=== PATIENT | female | born 1960 | race American Indian/Alaskan Native ===

== ENCOUNTER 2017-05-10 19:59 | Emergency (ER) | payer MEDICAID ==
[~2017-05-10] VITALS: Ht 165.1 cm; Wt 39.1 kg
[~2017-05-10 19:59] MED LIST: ACET500T71 PO; ENOX40SY4 SQ; WARF5TAB7 PO
[2017-05-10] MEDS ORDERED: ZIPRASIDONE 20 MG INJ IM ONE ×2 (20:18→20:30)
[2017-05-10] MEDS ORDERED: SODIUM CHLORIDE FLUSH 10ML SYR IVF ONE (20:30)
[2017-05-10] MEDS ORDERED: LORazepam 2 MG/ML, 1ML IVPush ONE (20:30)
[2017-05-10] MEDS ORDERED: SODIUM CHLORIDE 0.9% 1,000ML IVBOLUS ONE (20:30)
[2017-05-10 20:41] LABS: ASPARTATE AMINO TRANSFERASE 47 U/L (15-37); BLOOD UREA NITROGEN 20 mg/dL (7-18)
[2017-05-10 20:48] LABS: IS PT STATUS REG ER OR PRE ER? YES
[2017-05-10 21:09] LABS: DIFF TOTAL CELLS COUNTED 100 CELL DIFF
[2017-05-10 21:14] LABS: VERIFY COUNTS? YES
[2017-05-10 22:41] VITALS: BP 151/82
== END 2017-05-10 22:44 | disposition home or self-care (01) ==
LOC: ED 21:45
DX: F10.120 Alcohol abuse with intoxication, uncomplicated (principal)
CPT/HCPCS: 36415; 71010; 80053; 80307; 83690; 83880; 84484; 85025; 85610; 93005; 96360; 96361; 96372; 99285; J3486; J7030

== ENCOUNTER 2017-05-11 23:07 | Emergency (ER) | payer MEDICAID ==
[~2017-05-11] VITALS: Ht 149.9 cm; Wt 39.9 kg
[2017-05-11] MEDS ORDERED: NITROGLYCERIN OINT 2%, 1GM TP ONE (23:40)
[2017-05-11] MEDS ORDERED: LORazepam 2 MG/ML, 1ML ONE (23:40)
[2017-05-11] MEDS ORDERED: LABETALOL 5MG/ML, 20ML ONE (23:40)
[2017-05-11] MEDS ORDERED: THIAMINE 100MG TABLET ONE (23:59)
[2017-05-12] MEDS ORDERED: NITROGLYCERIN OINT 2%, 1GM TP ONE
[2017-05-12] MEDS ORDERED: ONDANSETRON 2MG/ML, 2ML IVPush ONE
[2017-05-12] MEDS ORDERED: ONDANSETRON 2MG/ML, 2ML ONE
[2017-05-12] MEDS ORDERED: SODIUM CHLORIDE 0.9% 1,000ML IVBOLUS ONE
[2017-05-12] MEDS ORDERED: LABETALOL 5MG/ML, 20ML IVPush ONE
[2017-05-12] MEDS ORDERED: THIAMINE 100MG TABLET PO ONE
[2017-05-12] MEDS ORDERED: LORazepam 2 MG/ML, 1ML IVPush PRN
[2017-05-12] MEDS ORDERED: SODIUM CHLORIDE FLUSH 10ML SYR IVF ONE
[2017-05-12 00:12] LABS: BLOOD UREA NITROGEN 19 mg/dL (7-18)
[2017-05-12 00:17] LABS: IS PT STATUS REG ER OR PRE ER? NO
[2017-05-12 00:34] LABS: PATH.CAST-FLAG NOT PRESENT; SPERM-FLAG NOT PRESENT; SRC-FLAG NOT PRESENT; XTAL-FLAG NOT PRESENT; YLC-FLAG NOT PRESENT
[2017-05-12 02:09] VITALS: BP 112/64
== END 2017-05-12 02:12 ==
LOC: ED 23:59
DX: F10.239 Alcohol dependence with withdrawal, unspecified (principal); I10 Essential (primary) hypertension; Z95.2 Presence of prosthetic heart valve
CPT/HCPCS: 36415; 70450; 80048; 80307; 81001; 82040; 84484; 85025; 93005; 96361; 96374; 96375; 99285; J2060; J2405; J7030

== ENCOUNTER 2017-07-13 19:40 | Inpatient (IN) | payer MEDICAID, OTHER ==
[~2017-07-13] VITALS: Ht 149.9 cm; Wt 44.2 kg
[2017-07-13] MEDS ORDERED: ASPIRIN 81 MG TABLET CHEW PO ONE (20:00)
[2017-07-13] MEDS ORDERED: ONDANSETRON 2MG/ML, 2ML IVPush ONE (20:00)
[2017-07-13] MEDS ORDERED: SODIUM CHLORIDE FLUSH 10ML SYR IVF ONE (20:00)
[2017-07-13] MEDS ORDERED: ONDANSETRON 2MG/ML, 2ML ONE (20:14)
[2017-07-13] MEDS ORDERED: MORPHINE SULFATE 4 MG/ML, 1ML ONE ×2 (20:14→20:51)
[2017-07-13] MEDS ORDERED: ASPIRIN 81 MG TABLET CHEW ONE (20:15)
[2017-07-13 20:16] LABS: HEMATOCRIT 36.7 % (34.6-47.8); WHITE BLOOD COUNT 6.1 x10^3/uL (3.4-10)
[2017-07-13] MEDS: MORPHINE SULFATE 4 MG/ML, 1ML IVPush PRN ×2 (20:24→20:58)
[2017-07-13 20:29] LABS: ASPARTATE AMINO TRANSFERASE 18 U/L (15-37); BLOOD UREA NITROGEN 44 mg/dL (7-18)
[2017-07-13 20:34] LABS: IS PT STATUS REG ER OR PRE ER? YES
[2017-07-13] MEDS ORDERED: SODIUM CHLORIDE 0.9% 1,000 ML IV ONE (21:15)
[2017-07-13] MEDS ORDERED: SODIUM CHLORIDE FLUSH 10ML SYR IVF PRN (21:30)
[2017-07-13] MEDS ORDERED: HYDROmorphone 1 MG/ML, 1ML ONE (21:44)
[2017-07-13] MEDS ORDERED: hydrALAzine 20 MG/ML, 1ML IVPush PRN (22:00)
[2017-07-13] MEDS ORDERED: PROMETHAZINE 25 MG/ML, 1ML IM PRN (22:00)
[2017-07-13] MEDS ORDERED: KETOROLAC 30 MG/1 ML IVPush PRN (22:00)
[2017-07-13] MEDS ORDERED: BISACODYL 10 MG SUPP PR PRN (22:00)
[2017-07-13] MEDS ORDERED: DIAZEPAM 5 MG/ML, 10ML VIAL IV PRN (22:00)
[2017-07-13] MEDS ORDERED: ONDANSETRON 2MG/ML, 2ML IVPush PRN (22:00)
[2017-07-13 22:03] LABS: DAU SCREEN DISCLAIMER
[2017-07-13 22:25] LABS: PATH.CAST-FLAG NOT PRESENT; SPERM-FLAG NOT PRESENT; SRC-FLAG NOT PRESENT; XTAL-FLAG NOT PRESENT; YLC-FLAG NOT PRESENT
[2017-07-13 22:32] VITALS: BP 154/97
[2017-07-13] MEDS ORDERED: OMNIPAQUE 350 MG/ML, 100ML BOTTLE ONE (23:27)
[2017-07-13] MEDS: METOPROLOL 1 MG/ML, 5ML IVPush SCH (23:33)
[2017-07-13] MEDS: SODIUM CHLORIDE 0.9% 1,000 ML IV SCH (23:33)
[2017-07-13] MEDS: HEPARIN 5,000 UNITS/ML, 1ML SQ SCH (23:34)
[2017-07-13] MEDS: METHOCARBAMOL 750 MG in DEXTROSE 5% 100 ML IV SCH (23:49)
[2017-07-14] MEDS ORDERED: HYDROmorphone 1 MG/ML, 1ML IV ONE
[2017-07-14 08:16] LABS: BLOOD UREA NITROGEN 36 mg/dL (7-18)
[2017-07-14 08:19] LABS: BLOOD UREA NITROGEN 32 mg/dL (7-18)
[2017-07-14 08:26] LABS: HEMATOCRIT 30.3 % (34.6-47.8); HEMOGLOBIN 9.9 g/dL (11.7-16.4); WHITE BLOOD COUNT 4.1 x10^3/uL (3.4-10)
[2017-07-14] MEDS: METHOCARBAMOL 750 MG in DEXTROSE 5% 100 ML IV SCH ×4 (09:02→20:56)
[2017-07-14] MEDS: METOPROLOL 1 MG/ML, 5ML IVPush SCH ×3 (09:03→20:56)
[2017-07-14] MEDS: SODIUM CHLORIDE 0.9% 1,000 ML IV SCH (09:04)
[2017-07-14] MEDS: HEPARIN 5,000 UNITS/ML, 1ML SQ SCH (09:04)
[2017-07-14 09:39] LABS: IS PT STATUS REG ER OR PRE ER? NO
[2017-07-14 10:03] LABS: IS PT STATUS REG ER OR PRE ER? NO
[2017-07-14 12:50] VITALS: BP 101/63
[2017-07-14] MEDS ORDERED: HEPARIN 5,000 UNITS/ML, 1ML IV PRN (13:30)
[2017-07-14] MEDS ORDERED: HEPARIN 25,000 UNITS/500ML PMX 500 ML IV PRN (13:30)
[2017-07-14] MEDS ORDERED: HEPARIN 5,000 UNITS/ML, 1ML IV ONE (13:30)
[2017-07-14] MEDS: morphine SULFATE 10 MG/ML, 1ML IVPush PRN ×2 (15:41→20:56)
[2017-07-14] MEDS: ASPIRIN 325 MG TABLET PO SCH (15:44)
[2017-07-14] MEDS: PANTOPRAZOLE 40 MG IV IVPush SCH (15:44)
[2017-07-14 16:58] VITALS: BP 132/81
[2017-07-14] MEDS: NITROGLYCERIN 0.4 MG BOTTLE (25 TABS) SL PRN ×3 (17:06→22:23)
[2017-07-14 17:27] VITALS: BP 117/75
[2017-07-14 17:54] VITALS: BP 102/61
[2017-07-14] MEDS: ISOSORBIDE MONONITRATE ER 30 MG TABLET PO SCH (20:18)
[2017-07-14 20:40] VITALS: BP 98/61
[2017-07-14] MEDS ORDERED: SODIUM CHLORIDE 0.9%, 250ML IVBOLUS ONE (22:00)
[2017-07-15] VITALS (8 sets, daily range): BP systolic 104–125; BP diastolic 61–77
[2017-07-15] MEDS: PANTOPRAZOLE 40 MG IV IVPush SCH ×2 (03:27→17:23)
[2017-07-15 03:51] LABS: ASPARTATE AMINO TRANSFERASE 24 U/L (15-37); BLOOD UREA NITROGEN 19 mg/dL (7-18)
[2017-07-15 03:56] LABS: IS PT STATUS REG ER OR PRE ER? NO
[2017-07-15] MEDS: NITROGLYCERIN 0.4 MG BOTTLE (25 TABS) SL PRN ×4 (04:24→11:46)
[2017-07-15 04:25] LABS: HEMATOCRIT 29.1 % (34.6-47.8); HEMOGLOBIN 9.6 g/dL (11.7-16.4); WHITE BLOOD COUNT 4.6 x10^3/uL (3.4-10)
[2017-07-15] MEDS: ASPIRIN 325 MG TABLET PO SCH (05:00)
[2017-07-15] MEDS: METOPROLOL 1 MG/ML, 5ML IVPush SCH ×3 (05:00→22:00)
[2017-07-15] MEDS: METHOCARBAMOL 750 MG in DEXTROSE 5% 100 ML IV SCH ×4 (05:00→22:57)
[2017-07-15] MEDS: ISOSORBIDE MONONITRATE ER 30 MG TABLET PO SCH (08:57)
[2017-07-15] MEDS: morphine SULFATE 10 MG/ML, 1ML IVPush PRN ×3 (08:57→20:07)
[2017-07-15] MEDS: SODIUM CHLORIDE 0.9% 1,000 ML IV SCH ×2 (08:57→21:01)
[2017-07-15] MEDS ORDERED: SODIUM CHLORIDE 0.9% 1,000 ML IV ONE (10:42)
[2017-07-15] MEDS ORDERED: VERAPAMIL 2.5 MG/ML, 2ML ONE (14:44)
[2017-07-15] MEDS ORDERED: FENTANYL PF 100 MCG/2ML ONE (14:44)
[2017-07-15] MEDS ORDERED: BIVALIRUDIN 250 MG ONE (14:44)
[2017-07-15] MEDS ORDERED: TICAGRELOR 90 MG TABLET ONE (14:44)
[2017-07-15] MEDS ORDERED: MIDAZOLAM 1 MG/ML, 5ML ONE (14:44)
[2017-07-15] MEDS ORDERED: LIDOCAINE 2%, 20ML ONE (14:45)
[2017-07-15] MEDS ORDERED: HEPARIN 1,000 UNITS/ML, 10ML ONE (14:45)
[2017-07-15] MEDS ORDERED: HEPARIN 5,000 UNITS/ML, 1ML IV ONE (18:30)
[2017-07-15] MEDS ORDERED: HEPARIN 25,000 UNITS/500ML PMX 500 ML IV PRN (18:30)
[2017-07-15] MEDS ORDERED: HEPARIN 5,000 UNITS/ML, 1ML IV PRN (18:30)
[2017-07-15] MEDS: LORazepam 2 MG/ML, 1ML IVPush PRN (21:01)
[2017-07-16 01:22] VITALS: BP 148/82
[2017-07-16] MEDS: LORazepam 2 MG/ML, 1ML IVPush PRN ×4 (02:43→19:59)
[2017-07-16 03:12] VITALS: BP 155/81
[2017-07-16] MEDS: PANTOPRAZOLE 40 MG IV IVPush SCH (05:43)
[2017-07-16] MEDS: SODIUM CHLORIDE 0.9% 1,000 ML IV SCH ×2 (05:44→14:56)
[2017-07-16] MEDS: METHOCARBAMOL 750 MG in DEXTROSE 5% 100 ML IV SCH (05:44)
[2017-07-16] MEDS: METOPROLOL 1 MG/ML, 5ML IVPush SCH ×2 (05:45→14:55)
[2017-07-16 07:44] LABS: HEMATOCRIT 28.6 % (34.6-47.8); HEMOGLOBIN 9.5 g/dL (11.7-16.4); WHITE BLOOD COUNT 6.1 x10^3/uL (3.4-10)
[2017-07-16 07:47] LABS: BLOOD UREA NITROGEN 10 mg/dL (7-18)
[2017-07-16] MEDS: ASPIRIN 325 MG TABLET PO SCH (08:00)
[2017-07-16 08:04] VITALS: BP 118/71
[2017-07-16] MEDS: ISOSORBIDE MONONITRATE ER 30 MG TABLET PO SCH (09:11)
[2017-07-16] MEDS ORDERED: METHOCARBAMOL 500 MG TABLET PO PRN (11:00)
[2017-07-16 12:37] VITALS: BP 148/82
[2017-07-16 16:52] LABS: BLOOD UREA NITROGEN 9 mg/dL (7-18)
[2017-07-16] MEDS: PANTOPROZOLE 40MG TABLET PO SCH (17:48)
[2017-07-16 18:55] VITALS: BP 135/84
[2017-07-17 01:45] VITALS: BP 130/71
[2017-07-17] MEDS: SODIUM CHLORIDE 0.9% 1,000 ML IV SCH ×3 (02:23→22:08)
[2017-07-17] MEDS: PANTOPROZOLE 40MG TABLET PO SCH ×2 (05:12→18:47)
[2017-07-17] MEDS: METOPROLOL SUCCINATE 25 MG TAB.ER.24H PO SCH (05:13)
[2017-07-17 05:16] VITALS: BP 137/86
[2017-07-17 05:36] LABS: HEMATOCRIT 29.6 % (34.6-47.8); HEMOGLOBIN 9.9 g/dL (11.7-16.4); WHITE BLOOD COUNT 4.2 x10^3/uL (3.4-10)
[2017-07-17 07:38] VITALS: BP 125/70
[2017-07-17] MEDS: ISOSORBIDE MONONITRATE ER 30 MG TABLET PO SCH (09:57)
[2017-07-17] MEDS: ASPIRIN 325 MG TABLET PO SCH (09:57)
[2017-07-17] MEDS: HYDROcodone/APAP 5/325 TABLET PO PRN ×2 (10:04→14:57)
[2017-07-17 12:40] VITALS: BP 129/72
[2017-07-17] MEDS ORDERED: WARFARIN 7.5 MG TABLET PO-COUM ONE (18:00)
[2017-07-17 18:47] VITALS: BP 153/66
[2017-07-17] MEDS: LORazepam 2 MG/ML, 1ML IVPush PRN (20:05)
[2017-07-18 02:10] VITALS: BP 129/72
[2017-07-18 05:22] VITALS: BP 146/79
[2017-07-18] MEDS: METOPROLOL SUCCINATE 25 MG TAB.ER.24H PO SCH (05:24)
[2017-07-18] MEDS: SODIUM CHLORIDE 0.9% 1,000 ML IV SCH ×2 (05:24→12:48)
[2017-07-18] MEDS: ASPIRIN 325 MG TABLET PO SCH (05:24)
[2017-07-18] MEDS: PANTOPROZOLE 40MG TABLET PO SCH ×2 (05:24→17:00)
[2017-07-18 05:31] LABS: HEMOGLOBIN 9.3 g/dL (11.7-16.4)
[2017-07-18 05:40] LABS: BLOOD UREA NITROGEN 7 mg/dL (7-18)
[2017-07-18 07:03] VITALS: BP 151/83
[2017-07-18] MEDS: HYDROcodone/APAP 5/325 TABLET PO PRN ×3 (08:14→17:00)
[2017-07-18] MEDS: ISOSORBIDE MONONITRATE ER 30 MG TABLET PO SCH (08:14)
[2017-07-18] MEDS ORDERED: HEPARIN 25,000 UNITS/500ML PMX 500 ML ONE (11:16)
[2017-07-18] MEDS ORDERED: HEPARIN 5,000 UNITS/ML, 1ML IV ONE (11:30)
[2017-07-18] MEDS ORDERED: HEPARIN 25,000 UNITS/500ML PMX 500 ML IV PRN (12:00)
[2017-07-18 13:16] VITALS: BP 151/77
[2017-07-18 19:10] VITALS: BP 154/77
[2017-07-18] MEDS ORDERED: WARFARIN 7.5 MG TABLET PO-COUM ONE (20:00)
[2017-07-18] MEDS: LORazepam 2 MG/ML, 1ML IVPush PRN (21:30)
[2017-07-18] MEDS ORDERED: SODIUM CHLORIDE 0.9% 1,000 ML IV SCH (21:33)
[2017-07-19 01:10] VITALS: BP 134/75
[2017-07-19] MEDS: PANTOPROZOLE 40MG TABLET PO SCH ×2 (05:28→16:56)
[2017-07-19] MEDS: METOPROLOL SUCCINATE 25 MG TAB.ER.24H PO SCH (05:29)
[2017-07-19] MEDS: ASPIRIN 325 MG TABLET PO SCH (05:29)
[2017-07-19 08:12] VITALS: BP 163/77
[2017-07-19] MEDS: ISOSORBIDE MONONITRATE ER 30 MG TABLET PO SCH (10:10)
[2017-07-19] MEDS: WARFARIN MODERAT DOSE PROTOCOL XX SCH (12:00)
[2017-07-19] MEDS: HYDROcodone/APAP 5/325 TABLET PO PRN ×3 (12:11→21:20)
[2017-07-19] MEDS ORDERED: GUAIFENESIN/DM 200-20MG, 10ML UDC PO PRN (12:30)
[2017-07-19 14:44] VITALS: BP 150/83
[2017-07-19] MEDS ORDERED: WARFARIN 2.5 MG TABLET PO-COUM SCH (18:00)
[2017-07-19] MEDS ORDERED: WARFARIN 7.5 MG TABLET PO-COUM ONE (18:00)
[2017-07-19 19:25] VITALS: BP 149/75
[2017-07-19] MEDS: LORazepam 2 MG/ML, 1ML IVPush PRN (21:20)
[2017-07-20 01:26] VITALS: BP 134/71
[2017-07-20] MEDS: PANTOPROZOLE 40MG TABLET PO SCH (05:29)
[2017-07-20] MEDS: METOPROLOL SUCCINATE 25 MG TAB.ER.24H PO SCH (05:29)
[2017-07-20] MEDS ORDERED: ASPIRIN 81 MG TABLET EC PO SCH (06:00)
[2017-07-20] MEDS ORDERED: HOLD COUMADIN MC PRN (08:00)
[2017-07-20 08:13] VITALS: BP 169/92
[2017-07-20] MEDS: ISOSORBIDE MONONITRATE ER 30 MG TABLET PO SCH (08:26)
[2017-07-20] MEDS: HYDROcodone/APAP 5/325 TABLET PO PRN ×2 (08:31→11:04)
[2017-07-20 11:00] VITALS: BP 134/77
[2017-07-20] MEDS: WARFARIN MODERAT DOSE PROTOCOL XX SCH (12:00)
[2017-07-20] MEDS ORDERED: PANT40TA5 PO (13:11)
[2017-07-20] MEDS ORDERED: METO25TA91 PO (13:11)
[2017-07-20] MEDS ORDERED: WARF4TAB PO (13:11)
[2017-07-20] MEDS ORDERED: ISOS30TA8 PO (13:11)
[2017-07-20] MEDS ORDERED: ASPI-621 PO (13:11)
[2017-07-20 13:59] VITALS: BP 141/74
== END 2017-07-20 15:34 | disposition home or self-care (01) | DRG 280 ==
LOC: ED 21:10 → SUATTDRO 21:11 → EDIP 21:15 → ED 21:34 → 5SO 22:26 → DCLOUNGE 07-20 15:20
PROC: 4A023N7 Measurement of Cardiac Sampling and Pressure, Left Heart, Percutaneous Approach (ICD-10-PCS; principal; 2017-07-15)
PROC: B2111ZZ Fluoroscopy of Multiple Coronary Arteries using Low Osmolar Contrast (ICD-10-PCS; 2017-07-15)
PROC: B2151ZZ Fluoroscopy of Left Heart using Low Osmolar Contrast (ICD-10-PCS; 2017-07-15)
DX: I21.4 Non-ST elevation (NSTEMI) myocardial infarction (principal); N17.0 Acute kidney failure with tubular necrosis; K85.20 Alcohol induced acute pancreatitis without necrosis or infection; D68.69 Other thrombophilia; E87.5 Hyperkalemia; K86.0 Alcohol-induced chronic pancreatitis; D64.9 Anemia, unspecified; I11.9 Hypertensive heart disease without heart failure; E78.1 Pure hyperglyceridemia; F17.210 Nicotine dependence, cigarettes, uncomplicated; I16.0 Hypertensive urgency; R82.71 Bacteriuria; M54.2 Cervicalgia; I25.10 Atherosclerotic heart disease of native coronary artery without angina pectoris; Z82.49 Family history of ischemic heart disease and other diseases of the circulatory system; Z95.3 Presence of xenogenic heart valve
CPT/HCPCS: 36415; 71010; 71275; 76700; 80048; 80053; 80061; 80307; 81001; 83690; 83735; 84100; 84484; 85025; 85379; 85520; 85610; 87086; 87147; 93005; 93306; 93458; 96361; 96374; 96375; 96376; 99156; C1894; J0583; J1170; J1644; J1885; J2250; J2405; J3010; J3490; Q9967; C9113; G0479; J0360; J2060; J2270; J2800; J7030; J7050

== ENCOUNTER 2018-12-31 09:45 | Inpatient (IN) | payer MEDICAID, OTHER ==
[~2018-12-31] VITALS: Ht 149.9 cm; Wt 39.5 kg
[~2018-12-31 09:45] MED LIST changes: +ASPI81TA45 PO; +ISOS30TA8 PO; +METO25TA91 PO; +PANT40TA5 PO; +WARF-36 PO; +WARF4TAB PO; -WARF5TAB7 PO
--- NOTE | 2018-12-31 10:01 | NUR ---
Pt to room from [facility]. Pt c/o sharp L sided CP 03/24 starting this morning. Pt speaking in full sentences, resp even and unlabored. Pt placed in gown, positioned for comfort in bed with warm blanket. Continuous heart, oxygen and BP monitors applied, all safety measures observed.
[2018-12-31] MEDS ORDERED: ASPIRIN 81 MG TABLET CHEW ONE (10:08)
[2018-12-31] MEDS ORDERED: NITROGLYCERIN SINGLE TAB 0.4 MG SL PRN (10:30)
[2018-12-31] MEDS ORDERED: ASPIRIN 81 MG TABLET CHEW PO ONE (10:30)
[2018-12-31 10:36] LABS: BASOPHILS # (AUTO) 0.03 x10^3/uL (0-0.1); BASOPHILS % (AUTO) 1 % (0-1); EOSINOPHILS # (AUTO) 0.14 x10^3/uL (0-0.4); EOSINOPHILS % (AUTO) 4 % (1-7); LYMPHOCYTES # (AUTO) 0.89 x10^3/uL (1-3.4); LYMPHOCYTES % (AUTO) 22 % (22-44); MD NO; MEAN CORPUSCULAR HEMOGLOBIN 30.2 pg (27.0-34.8); MEAN CORPUSCULAR HGB CONC 33.2 g/dL (32.4-35.8); MEAN CORPUSCULAR VOLUME 90.9 fL (80-100); MEAN PLATELET VOLUME 8.2 fL (7.4-10.4); MONOCYTES # (AUTO) 0.25 x10^3/uL (0.2-0.8); MONOCYTES % (AUTO) 6 % (2-9); NEUTROPHILS # (AUTO) 2.79 x10^3/uL (1.8-6.8); NEUTROPHILS % (AUTO) 68 % (42-75); PLATELET COUNT 243 x10^3/uL (130-400); RED BLOOD COUNT 4.39 x10^6/uL (3.82-5.3); RED CELL DISTRIBUTION WIDTH 13.7 % (9.6-15.2)
[2018-12-31 10:38] LABS: INTERNATIONAL NORMALIZED RATIO 1.06 (0.93-1.1); PROTHROMBIN TIME 11.2 Seconds (9.6-11.5)
[2018-12-31] MEDS ORDERED: NITROGLYCERIN SINGLE TAB 0.4 MG SL ONE (10:38)
[2018-12-31 10:40] LABS: ALBUMIN 3.8 g/dL (3.4-5.0); ANION GAP 8 mmol/L (5-15); CALCIUM 9.3 mg/dL (8.5-10.1); CHLORIDE 108 mmol/L (98-107); CREATININE 1.27 mg/dL (0.55-1.02)
[2018-12-31 10:44] LABS: TROPONIN I < 0.015 ng/mL (0.000-0.045)
--- NOTE | 2018-12-31 10:55 | NUR ---
Pt states CP 10 after NTG. Pt c/o ONOFRE at this time as well.
[2018-12-31] MEDS ORDERED: ACETAMINOPHEN 325 MG TABLET ONE (10:57)
--- NOTE | 2018-12-31 10:59 | NUR ---
Discussed pt condition with Dr. Riddle. Orders received for Tylenol PO. Pt medicated per order, denies other needs.
[2018-12-31 11:12] LABS: FREE T4 (FREE THYROXINE) 1.08 ng/dL (0.76-1.46)
[2018-12-31] MEDS ORDERED: ACETAMINOPHEN 325 MG TABLET PO ONE (11:30)
--- NOTE | 2018-12-31 11:40 | NUR ---
SURGERY NURSE AT BEDSIDE WITH DECISION TO GO TO HOUSING DEVELOPMENT SPECIALIST. HOUSING DEVELOPMENT SPECIALIST NOT READY AT THIS TIME. HOSPITALIST AT BEDSIDE SPEAKING WITH PT
[2018-12-31] MEDS ORDERED: FENTANYL PF 100 MCG/2ML ONE (11:42)
[2018-12-31] MEDS ORDERED: LIDOCAINE 1%, 20ML ONE (11:42)
[2018-12-31] MEDS ORDERED: MIDAZOLAM 1 MG/ML, 2ML ONE (11:42)
[2018-12-31] MEDS ORDERED: NITROGLYCERIN 5 MG/ML, 10ML ONE (11:42)
[2018-12-31] MEDS ORDERED: BIVALIRUDIN 250 MG ONE (11:42)
--- NOTE | 2018-12-31 11:50 | NUR ---
PT WITH SILVERSUMMIT INS. DENIED BY ELINOR AT [facility] AND DIANNE AT [facility]
--- NOTE | 2018-12-31 11:52 | NUR ---
Transparent pads placed on pt. Pt to can labeler with RNs and tech
[2018-12-31] MEDS ORDERED: NS + 20MEQ KCL 1,000 ML IV SCH (11:59)
[2018-12-31] MEDS ORDERED: NITROGLYCERIN 0.4 MG BOTTLE (25 TABS) SL PRN (12:00)
[2018-12-31] MEDS ORDERED: hydrALAzine 20 MG/ML, 1ML IVPush PRN (12:00)
[2018-12-31] MEDS ORDERED: NITROGLYCERIN 0.4 MG/SPRAY SL PRN (12:00)
[2018-12-31] MEDS ORDERED: morphine SULFATE 10 MG/ML, 1ML IV PRN (12:00)
[2018-12-31] MEDS ORDERED: HEPARIN 5,000 UNITS/ML, 1ML SQ SCH (12:00)
[2018-12-31 12:24] LABS: CHOL/HDL RATIO 2.6; LDL/HDL RATIO 1.5 (0.5-3.0)
[2018-12-31] MEDS ORDERED: SODIUM CHLORIDE 0.9% 1,000 ML IV SCH (12:27)
[2018-12-31] MEDS ORDERED: WARFARIN MECH. VALVE PROTOCOL 2.5 to 3.5 XX PRN (12:30)
[2018-12-31] MEDS ORDERED: HEPARIN 5,000 UNITS/ML, 1ML IV ONE (13:00)
[2018-12-31 13:28] VITALS: BP 143/89
[2018-12-31] MEDS: HEPARIN 25,000 UNITS/500ML PMX 500 ML IV PRN (14:49)
[2018-12-31] MEDS ORDERED: WARFARIN 7.5 MG TABLET PO-COUM ONE (18:00)
[2018-12-31 20:48] VITALS: BP 125/81
[2018-12-31] MEDS: METOPROLOL SUCCINATE 25 MG TAB.ER.24H PO SCH (20:52)
[2018-12-31] MEDS: ATORVASTATIN 40 MG TABLET PO SCH (20:52)
[2018-12-31] MEDS: SODIUM CHLORIDE FLUSH 10ML SYR IVF SCH (20:53)
[2019-01-01 00:50] VITALS: BP 104/69
[2019-01-01 05:06] LABS: INTERNATIONAL NORMALIZED RATIO 1.06 (0.93-1.1); PROTHROMBIN TIME 11.2 Seconds (9.6-11.5)
[2019-01-01 05:11] LABS: ANION GAP 6 mmol/L (5-15); CALCIUM 8.8 mg/dL (8.5-10.1); CHLORIDE 110 mmol/L (98-107); CREATININE 1.11 mg/dL (0.55-1.02)
[2019-01-01 05:15] LABS: BASOPHILS # (AUTO) 0.03 x10^3/uL (0-0.1); BASOPHILS % (AUTO) 1 % (0-1); EOSINOPHILS # (AUTO) 0.15 x10^3/uL (0-0.4); EOSINOPHILS % (AUTO) 3 % (1-7); LYMPHOCYTES # (AUTO) 1.67 x10^3/uL (1-3.4); LYMPHOCYTES % (AUTO) 28 % (22-44); MD NO; MEAN CORPUSCULAR HEMOGLOBIN 29.9 pg (27.0-34.8); MEAN CORPUSCULAR HGB CONC 32.5 g/dL (32.4-35.8); MEAN CORPUSCULAR VOLUME 91.9 fL (80-100); MEAN PLATELET VOLUME 8.6 fL (7.4-10.4); MONOCYTES # (AUTO) 0.55 x10^3/uL (0.2-0.8); MONOCYTES % (AUTO) 9 % (2-9); NEUTROPHILS # (AUTO) 3.53 x10^3/uL (1.8-6.8); NEUTROPHILS % (AUTO) 60 % (42-75); PLATELET COUNT 207 x10^3/uL (130-400); RED BLOOD COUNT 4.08 x10^6/uL (3.82-5.3); RED CELL DISTRIBUTION WIDTH 13.8 % (9.6-15.2)
[2019-01-01] MEDS: HEPARIN 5,000 UNITS/ML, 1ML IV PRN (05:38)
[2019-01-01] MEDS: ASPIRIN 325 MG TABLET EC PO SCH (05:40)
[2019-01-01] MEDS: METOPROLOL SUCCINATE 25 MG TAB.ER.24H PO SCH (05:50)
[2019-01-01 08:00] VITALS: BP 110/74
[2019-01-01] MEDS: SODIUM CHLORIDE FLUSH 10ML SYR IVF SCH ×2 (08:51→20:32)
[2019-01-01 11:10] VITALS: BP 110/69
[2019-01-01 13:10] VITALS: BP 104/64
[2019-01-01] MEDS ORDERED: WARFARIN 7.5 MG TABLET PO-COUM ONE (18:00)
[2019-01-01 19:48] VITALS: BP 117/70
[2019-01-01] MEDS: ATORVASTATIN 40 MG TABLET PO SCH (20:32)
[2019-01-02 02:23] VITALS: BP 119/73
[2019-01-02 05:42] LABS: INTERNATIONAL NORMALIZED RATIO 2.11 (0.93-1.1); PROTHROMBIN TIME 21.7 Seconds (9.6-11.5)
[2019-01-02 05:53] LABS: ANION GAP 5 mmol/L (5-15); CALCIUM 8.4 mg/dL (8.5-10.1); CHLORIDE 109 mmol/L (98-107); CREATININE 1.01 mg/dL (0.55-1.02)
[2019-01-02 05:55] VITALS: BP 113/74
[2019-01-02] MEDS: ASPIRIN 325 MG TABLET EC PO SCH (05:57)
[2019-01-02] MEDS: METOPROLOL SUCCINATE 25 MG TAB.ER.24H PO SCH (05:57)
[2019-01-02 07:21] VITALS: BP 113/75
[2019-01-02] MEDS: SODIUM CHLORIDE FLUSH 10ML SYR IVF SCH ×2 (08:33→21:00)
[2019-01-02] MEDS: HEPARIN 25,000 UNITS/500ML PMX 500 ML IV PRN (08:49)
[2019-01-02] MEDS: HEPARIN 5,000 UNITS/ML, 1ML IV PRN (08:50)
[2019-01-02 12:14] VITALS: BP 118/72
[2019-01-02] MEDS ORDERED: BISACODYL 10 MG SUPP PR PRN (18:00)
[2019-01-02] MEDS ORDERED: POLYETHYLENE GLYCOL 17 GM PACKET NG PRN (18:00)
[2019-01-02] MEDS ORDERED: WARFARIN 2.5 MG TABLET PO-COUM ONE (18:00)
[2019-01-02 21:12] VITALS: BP 111/71
[2019-01-02] MEDS: ATORVASTATIN 40 MG TABLET PO SCH (22:29)
[2019-01-03 02:45] VITALS: BP 126/71
[2019-01-03] MEDS: ASPIRIN 325 MG TABLET EC PO SCH (05:24)
[2019-01-03] MEDS: METOPROLOL SUCCINATE 25 MG TAB.ER.24H PO SCH (05:25)
[2019-01-03 05:56] LABS: BASOPHILS # (AUTO) 0.04 x10^3/uL (0-0.1); BASOPHILS % (AUTO) 1 % (0-1); EOSINOPHILS # (AUTO) 0.23 x10^3/uL (0-0.4); EOSINOPHILS % (AUTO) 4 % (1-7); LYMPHOCYTES # (AUTO) 1.54 x10^3/uL (1-3.4); LYMPHOCYTES % (AUTO) 26 % (22-44); MD NO; MEAN CORPUSCULAR HEMOGLOBIN 30.3 pg (27.0-34.8); MEAN CORPUSCULAR HGB CONC 33.2 g/dL (32.4-35.8); MEAN CORPUSCULAR VOLUME 91.4 fL (80-100); MEAN PLATELET VOLUME 8.6 fL (7.4-10.4); MONOCYTES # (AUTO) 0.47 x10^3/uL (0.2-0.8); MONOCYTES % (AUTO) 8 % (2-9); NEUTROPHILS # (AUTO) 3.64 x10^3/uL (1.8-6.8); NEUTROPHILS % (AUTO) 62 % (42-75); PLATELET COUNT 209 x10^3/uL (130-400); RED BLOOD COUNT 4.21 x10^6/uL (3.82-5.3)
[2019-01-03 06:48] VITALS: BP 150/81
[2019-01-03 06:56] LABS: INTERNATIONAL NORMALIZED RATIO 4.06 (0.93-1.1); PROTHROMBIN TIME 40.8 Seconds (9.6-11.5)
[2019-01-03] MEDS ORDERED: SENNA/DOCUSATE TABLET PO SCH (09:00)
[2019-01-03] MEDS: SODIUM CHLORIDE FLUSH 10ML SYR IVF SCH (10:52)
[2019-01-03] MEDS ORDERED: ASPI-515 PO (11:07)
[2019-01-03] MEDS ORDERED: ATOR40TA78 PO (11:07)
[2019-01-03] MEDS ORDERED: WARF5TAB PO (11:07)
[2019-01-03] MEDS ORDERED: METO25TA91 PO (11:07)
[2019-01-03] MEDS ORDERED: WARFARIN 3 MG TABLET PO-COUM ONE (18:00)
== END 2019-01-03 12:20 | disposition home or self-care (01) | DRG 287 ==
LOC: ED 10:18 → EDIP 11:28 → 5SO 12:47 → 4NOR 01-01 11:05 → DCLOUNGE 01-03 12:15
PROVIDERS: ADMIT Internal Medicine; ATTEND Internal Medicine
PROC: 4A023N7 Measurement of Cardiac Sampling and Pressure, Left Heart, Percutaneous Approach (ICD-10-PCS; principal; 2018-12-31)
PROC: B2111ZZ Fluoroscopy of Multiple Coronary Arteries using Low Osmolar Contrast (ICD-10-PCS; 2018-12-31)
PROC: B2151ZZ Fluoroscopy of Left Heart using Low Osmolar Contrast (ICD-10-PCS; 2018-12-31)
DX: I25.10 Atherosclerotic heart disease of native coronary artery without angina pectoris (principal); D68.69 Other thrombophilia; N17.9 Acute kidney failure, unspecified; F17.210 Nicotine dependence, cigarettes, uncomplicated; F10.20 Alcohol dependence, uncomplicated; Y90.9 Presence of alcohol in blood, level not specified; Z71.6 Tobacco abuse counseling; Z79.01 Long term (current) use of anticoagulants; Z82.49 Family history of ischemic heart disease and other diseases of the circulatory system; Z91.14 Patient's other noncompliance with medication regimen; Z95.2 Presence of prosthetic heart valve
CPT/HCPCS: 36415; 71045; 80048; 80061; 82040; 84439; 84443; 84481; 84484; 85025; 85520; 85610; 85730; 93005; 93306; 93458; 99156; 99291; C1760; C1769; C1894; G0378; J0583; J1644; J2250; J3010; J3490; Q9967

== ENCOUNTER 2019-09-19 15:13 | Emergency (ER) | payer MEDICAID ==
[~2019-09-19] VITALS: Ht 147.3 cm; Wt 35.2 kg
[~2019-09-19 15:13] MED LIST changes: +ACET500T64 PO; -ACET500T71 PO; +ASPI-515 PO; +ATOR40TA78 PO; +WARF5TAB PO
[2019-09-19 15:16] VITALS: BP 172/97
== END 2019-09-19 17:08 | disposition home or self-care (01) ==
LOC: ED 17:05
DX: S39.012A Strain of muscle, fascia and tendon of lower back, initial encounter (principal); I10 Essential (primary) hypertension; Z87.891 Personal history of nicotine dependence; V03.09XA Pedestrian with other conveyance injured in collision with car, pick-up truck or van in nontraffic accident, initial encounter; Y93.89 Activity, other specified; Y92.410 Unspecified street and highway as the place of occurrence of the external cause; Y99.8 Other external cause status
CPT/HCPCS: 72110; 72220; 99283

== ENCOUNTER 2020-01-30 09:24 | Emergency (ER) | payer MEDICAID, OTHER ==
[~2020-01-30] VITALS: Ht 149.9 cm; Wt 45.0 kg
--- NOTE | 2020-01-30 09:33 | NUR ---
HERBER. REPORT RECEIVED FROM EMS. PT HAD SUDDEN ONSET OF SHARP LEFT SIDED CP RADIATING TO LEFT SHOURDER AT 8:30AM AT WORK. HX OF MITRAL VALVE REPLACEMENT. ALL MONITORS IN PLACE. CALL LIGHT WITHIN REACH. 325 ASA/NITRO X 3 TIMES GIVEN BIOTECH PRODUCTION SPECIALIST BY EMS. PT'S AOX4. RESPS EVEN AND UNLABORED. NSR RATE 90'S ON QUALITY ASSURANCE SUPERVISOR TRIM AT THIS TIME.
[2020-01-30] MEDS ORDERED: SODIUM CHLORIDE FLUSH 10ML SYR IVF ONE (11:00)
[2020-01-30] MEDS ORDERED: MORPHINE SULFATE 4 MG/ML, 1ML IVPush PRN (11:00)
[2020-01-30] MEDS ORDERED: ONDANSETRON 2MG/ML, 2ML IVPush ONE (11:00)
[2020-01-30] MEDS ORDERED: MORPHINE SULFATE 4 MG/ML, 1ML ONE (11:09)
[2020-01-30] MEDS ORDERED: ONDANSETRON 2MG/ML, 2ML ONE (11:09)
--- NOTE | 2020-01-30 11:14 | NUR ---
EKG DONE AT BEDSIDE BY EMT.
--- NOTE | 2020-01-30 11:20 | NUR ---
PT MEDICATED PER EMAR. PT TOLERATED WELL. PT'S AOX4. RESPS EVEN AND UNLABORED.
[2020-01-30 11:28] LABS: BASOPHILS # (AUTO) 0.03 x10^3/uL (0-0.1); BASOPHILS % (AUTO) 0 % (0-1); EOSINOPHILS # (AUTO) 0.19 x10^3/uL (0-0.4); EOSINOPHILS % (AUTO) 3 % (1-7); LYMPHOCYTES # (AUTO) 0.77 x10^3/uL (1-3.4); LYMPHOCYTES % (AUTO) 12 % (22-44); MD NO; MEAN CORPUSCULAR HGB CONC 33.2 g/dL (32.4-35.8); MEAN CORPUSCULAR VOLUME 90.4 fL (80-100); MEAN PLATELET VOLUME 7.8 fL (7.4-10.4); MONOCYTES # (AUTO) 0.33 x10^3/uL (0.2-0.8); MONOCYTES % (AUTO) 5 % (2-9); NEUTROPHILS # (AUTO) 5.12 x10^3/uL (1.8-6.8); NEUTROPHILS % (AUTO) 80 % (42-75); PLATELET COUNT 227 x10^3/uL (130-400); RED BLOOD COUNT 4.18 x10^6/uL (3.82-5.3); RED CELL DISTRIBUTION WIDTH 13.9 % (9.6-15.2)
[2020-01-30 11:37] LABS: ALBUMIN 3.5 g/dL (3.4-5.0); ANION GAP 3 mmol/L (5-15); CALCIUM 8.5 mg/dL (8.5-10.1); CHLORIDE 109 mmol/L (98-107); CREATININE 0.98 mg/dL (0.55-1.02)
[2020-01-30 11:41] LABS: TROPONIN I < 0.015 ng/mL (0.000-0.045)
--- NOTE | 2020-01-30 12:27 | NUR ---
Pt taken to restroom.
[2020-01-30 13:02] VITALS: BP 144/87
--- NOTE | 2020-01-30 13:02 | NUR ---
PT RESTING IN RSTRYKER. PT'S PAIN LEVEL IS 5/10 AT THIS TIME. PT'S AOX4. RESPS EVEN AND UNLABORED.
--- NOTE | 2020-01-30 13:07 | NUR ---
PT'S DAUGHTER'S NUMBER [phone]
--- NOTE | 2020-01-30 13:55 | NUR ---
Patient given discharge instructions and they have confirmed that they understand the instructions. Patient ambulatory with steady gait.
== END 2020-01-30 13:56 | disposition home or self-care (01) ==
LOC: ED 13:17
DX: R07.89 Other chest pain (principal); I10 Essential (primary) hypertension
CPT/HCPCS: 36415; 71045; 80048; 82040; 84484; 85025; 93005; 96374; 96375; 99285; J2270; J2405

== ENCOUNTER 2021-03-11 11:14 | Emergency (ER) | payer MEDICAID, OTHER ==
[~2021-03-11] VITALS: Ht 149.9 cm; Wt 42.0 kg
[~2021-03-11 11:14] MED LIST changes: -ASPI-515 PO; +ASPI-963 PO; -PANT40TA5 PO; +PANT40TA6 PO; -WARF5TAB PO; +WARF5TAB2 PO
[2021-03-11 12:13] VITALS: BP 152/87
[2021-03-11 12:28] LABS: INTERNATIONAL NORMALIZED RATIO 1.1 (0.93-1.1); PROTHROMBIN TIME 11.7 Seconds (9.6-11.5)
--- NOTE | 2021-03-11 12:56 | NUR ---
REPORT RECEIVED FROM ROEL RN. PT RESTING COMFORTABLY
[2021-03-11] MEDS ORDERED: Enoxaparin 1 mg/kg protocol SQ ONE (13:00)
[2021-03-11] MEDS ORDERED: ENOXAPARIN 40 MG/0.4 ML ONE (13:10)
--- NOTE | 2021-03-11 13:21 | NUR ---
PT ADMINSTERED LOVENOX HERSELF, SHE HAS A PRESCRIPTION FOR WHEN SHE GOES HOME.
[2021-03-11] MEDS ORDERED: ENOXAPARIN 40 MG/0.4 ML SQ ONE (13:30)
== END 2021-03-11 14:04 | disposition home or self-care (01) ==
LOC: ED 13:58
DX: Z95.2 Presence of prosthetic heart valve (principal); I10 Essential (primary) hypertension
CPT/HCPCS: 36415; 85610; 96372; 99283; J1650

== ENCOUNTER 2021-03-20 11:55 | Emergency (ER) | payer MEDICAID ==
[~2021-03-20] VITALS: Ht 147.3 cm; Wt 40.0 kg
--- NOTE | 2021-03-20 12:19 | NUR ---
PT TO ROOM 34 W/ C/O CHEST PRESSURE STARTED THIS AM AROUND 0600. PT STATES SHE IS SUPPOSED TO BE TAKING LOVENOX STARTED 6 DAYS AGO BY ER . PT STATES SHE STOPPED TAKING IT 2 DAYS AGO SECINDARY TO INSURANCE AND IS NOW CURRENTLY ON COUMADIN STARTED YESTERDAY. PT IS CURRENTLY ON IT FOR MITRAL VALVE ISSUE. PT STATES SHE IS SUPPOSED TO FOLLOW UP W/ CARDS DR. BOLANOS. PT RESTING ON GURNEY. NADN. MONITORS APPLIED. VSS. WARM BLANKET PROVIDED. PIV INITIATED. JESSE BOWERS AT BEDSIDE FOR EVAL.
[2021-03-20] MEDS ORDERED: ASPIRIN 81 MG TABLET CHEW PO ONE (12:30)
[2021-03-20] MEDS ORDERED: MORPHINE SULFATE 4 MG/ML, 1ML IVPush PRN (12:30)
[2021-03-20] MEDS ORDERED: ONDANSETRON 2MG/ML, 2ML IVPush ONE (12:30)
[2021-03-20] MEDS ORDERED: SODIUM CHLORIDE FLUSH 10ML SYR IVF ONE (12:30)
[2021-03-20 12:45] LABS: BASOPHILS % (AUTO) 1 % (0-1); EOSINOPHILS % (AUTO) 3 % (1-7); LYMPHOCYTES % (AUTO) 19 % (22-44); MEAN CORPUSCULAR HEMOGLOBIN 30.1 pg (27.0-34.8); MEAN CORPUSCULAR HGB CONC 33.4 g/dL (32.4-35.8); MEAN PLATELET VOLUME 8.3 fL (7.4-10.4); MONOCYTES % (AUTO) 9 % (2-9); NEUTROPHILS % (AUTO) 69 % (42-75); PLATELET COUNT 305 x10^3/uL (130-400); RED BLOOD COUNT 4.41 x10^6/uL (3.82-5.3); RED CELL DISTRIBUTION WIDTH 13.9 % (9.6-15.2)
[2021-03-20 12:47] LABS: MD NO
[2021-03-20] MEDS ORDERED: MORPHINE SULFATE 4 MG/ML, 1ML ONE (12:53)
[2021-03-20] MEDS ORDERED: ASPIRIN 81 MG TABLET CHEW ONE (12:53)
[2021-03-20] MEDS ORDERED: ONDANSETRON 2MG/ML, 2ML ONE (12:53)
[2021-03-20 12:54] LABS: ALBUMIN 4.3 g/dL (3.4-5.0); ANION GAP 5 mmol/L (5-15); CALCIUM 9.1 mg/dL (8.5-10.1); CHLORIDE 107 mmol/L (98-107); CREATININE 1.27 mg/dL (0.55-1.02)
[2021-03-20 12:58] LABS: TROPONIN I < 0.015 ng/mL (0.000-0.045)
--- NOTE | 2021-03-20 12:59 | NUR ---
PT MEDICATED PER JAN. PT RESTING ON ILIR. VSS.
[2021-03-20 13:24] LABS: INTERNATIONAL NORMALIZED RATIO 1.03 (0.93-1.1)
[2021-03-20] MEDS ORDERED: OMNIPAQUE 350 MG/ML, 75ML BOTTLE ONE (13:34)
--- NOTE | 2021-03-20 13:38 | NUR ---
PT CHART REVIEWED AND PLACED FOR RECHECK.
--- NOTE | 2021-03-20 13:53 | NUR ---
PT RESTING ON GURNEY. NADN. GREEN.
--- NOTE | 2021-03-20 14:25 | NUR ---
Rufino cornelius in ED - 03/20/21 at 1434 by COREY SECURITY REMOVED RESTRAINTS . PT IS CALM AND COOPERATIVE AND STATED UNDERSTANDING OF REASON FOR BEING IN THE HOSPITAL.
[2021-03-20 14:31] VITALS: BP 147/81
--- NOTE | 2021-03-20 14:31 | NUR ---
PT RESTING ON GURNEY. NADN. GREEN.
[2021-03-20] MEDS ORDERED: ENOXAPARIN 40 MG/0.4 ML ONE (14:50)
[2021-03-20] MEDS ORDERED: ENOXAPARIN 40 MG/0.4 ML SQ ONE (15:00)
== END 2021-03-20 15:12 | disposition home or self-care (01) ==
LOC: ED 13:25
DX: R07.89 Other chest pain (principal); R06.02 Shortness of breath; I10 Essential (primary) hypertension; Z79.01 Long term (current) use of anticoagulants
CPT/HCPCS: 36415; 71045; 71275; 80048; 82040; 83880; 84484; 85025; 85610; 93005; 96372; 96374; 96375; 99285; J1650; J2270; J2405; Q9967